=== PATIENT | male | born 1990 | race African-American/Black ===

== ENCOUNTER 2018-12-02 06:39 | Emergency (ER) | payer MEDICAID ==
[~2018-12-02] VITALS: Ht 180.3 cm; Wt 73.0 kg
[2018-12-02 08:01] VITALS: BP 124/64
== END 2018-12-02 08:05 | disposition home or self-care (01) ==
LOC: ER 06:39
DX: J06.9 Acute upper respiratory infection, unspecified (principal)
CPT/HCPCS: 99282